=== PATIENT | male | born 1985 | race Caucasian/White ===

== ENCOUNTER 2017-07-27 20:27 | Emergency (ER) | payer OTHER ==
[~2017-07-27] VITALS: Ht 157.5 cm; Wt 64.0 kg
[2017-07-27] MEDS ORDERED: ULTRAM50 M1 PO (21:30)
[2017-07-27 21:35] VITALS: BP 114/66
== END 2017-07-27 21:35 | disposition home or self-care (01) | DRG 563 ==
LOC: ED 20:27
DX: S83.91XA Sprain of unspecified site of right knee, initial encounter (principal); X50.1XXA Overexertion from prolonged static or awkward postures, initial encounter; Y93.64 Activity, baseball; Y92.320 Baseball field as the place of occurrence of the external cause

== ENCOUNTER 2018-04-20 16:00 | Outpatient (RCR) | payer OTHER ==
[~2018-04-20 16:00] MED LIST: ULTRAM50 M1 PO
== END 2018-04-20 17:00 | disposition home or self-care (01) | DRG 950 ==
LOC: PT 16:00
DX: S83.511D Sprain of anterior cruciate ligament of right knee, subsequent encounter (principal); M25.561 Pain in right knee

== ENCOUNTER 2018-04-26 08:00 | Outpatient (RCR) | payer OTHER | END 2018-04-26 09:00 | disposition home or self-care (01) | DRG 556 | LOC: PT 08:00 | DX: M25.561 Pain in right knee (principal); S83.511D Sprain of anterior cruciate ligament of right knee, subsequent encounter ==